=== PATIENT | male | born 1955 | race Caucasian/White ===

== ENCOUNTER → 2017-12-12 | Outpatient (CLI) | payer OTHER ==
[2015-02-10 09:03] VITALS: BP 188/91
--- NOTE | 2017-12-12 15:09 | KCIC ---
MRI Cervical Spine Without Contrast History: Cervical spondylosis, chronic neck pain, upper back pain Technique: Multiplanar, multi sequential noncontrast MR imaging was performed of the cervical spine. Comparison: None Findings: There is motion degradation even for repeated images. Motion degradation limits accurate evaluation of the neural foramina. Cervical vertebral body stature is overall maintained. Cervical cord caliber is within normal limits without expansile signal change, limited evaluation for subtle signal change due to motion artifact. There is no convincing marrow edema. There is minimal grade 1 anterior spondylolisthesis at C3-4, C4-5, C6-7. There is mild degenerative disc disease C3-4, C4-5, C6-7, mild disc desiccation C5-C6. There is no significant abnormality of the cervical medullary junction. There is hemangioma of the T3 vertebral body. There is mild levoscoliosis. C2-C3: Spinal canal and neural foramina are adequate. C3-C4: There is bilateral facet degenerative change. Spinal canal is adequate. There is probable uncovertebral degenerative change change. There is likely [id number] left and mild right neural foramina compromise. C4-C5: There is bilateral facet degenerative change. Spinal canal is overall adequate. Neural foramina are not significantly narrowed. C5-C6: Spinal canal is adequate. There is right greater than left facet hypertrophic change. Left neural foramen is likely adequate, probable mild narrowing on the right. C6-C7: There is minimal buckling of the ligamentum flavum. Central canal is overall adequate. There is facet degenerative change. There is probable minimal narrowing of the left neural foramen, right neural foramen not significantly narrowed. C7-T1: Spinal canal and neural foramina are adequate. Impression: 1. There is no significant cervical spinal stenosis. There is multilevel facet degenerative change. Accurate evaluation of the neural foramina is limited due to motion degradation, probable [id number] narrowing on the left at C3-4 and minimal narrowing on the left at C6-7 and on the right at C3-4 and C5-6. There is mild grade 1 anterior spondylolisthesis C3-4, C4-5, C6-7. There is mild degenerative disc disease at the same levels. Electronically signed by: Fabrice Manzo MD (12/12/2017 3:05 PM) [id number]
== END | disposition home or self-care (01) ==
LOC: KCIC MRI 13:49
PROVIDERS: ATTEND Anesthesiology Pain Medicine
DX: M50.31 Other cervical disc degeneration, high cervical region (principal); M48.02 Spinal stenosis, cervical region; M43.12 Spondylolisthesis, cervical region
CPT/HCPCS: 72141

== ENCOUNTER → 2021-05-30 | Outpatient (CLI) | payer OTHER ==
[2015-02-10 09:03] VITALS: BP 188/91
--- NOTE | 2021-05-30 14:29 | KCIC ---
INDICATION: Tremor COMPARISON: None. TECHNIQUE: Multiplanar, multisequence MRI images obtained through the brain. FINDINGS: No midline shift. Basilar cistern patent. No regions of abnormal restricted diffusion. Ventricles and sulci are within normal limits in size for the patient's age. No intracranial hemorrhage or gross mass seen. There is some prominence of the subdural space frontally which could be from volume loss. Patchy regions of high T2 signal within the white matter as well as the brainstem. IMPRESSION: * No MRI evidence of acute infarct or hemorrhage. * Scattered foci of high T2 signal within the white matter. Nonspecific but can be seen with chronic small vessel ischemic changes. Electronically signed by: Dom Mcintosh MD (05/30/2021 2:27 PM) [id number]
== END ==
LOC: KCIC MRI 13:10
PROVIDERS: ATTEND Nurse Practitioner Family
DX: G93.89 Other specified disorders of brain (principal); G25.0 Essential tremor
CPT/HCPCS: 70551